=== PATIENT | female | born 1980 | race Caucasian/White ===

== ENCOUNTER 2020-06-26 16:14 | Emergency (ER) | payer MEDICAID, OTHER ==
[~2020-06-26] VITALS: Ht 157.5 cm; Wt 75.0 kg
[2020-06-26 20:13] VITALS: BP 127/71
== END 2020-06-26 20:36 | disposition home or self-care (01) ==
LOC: EMS 16:14
DX: S83.92XA Sprain of unspecified site of left knee, initial encounter (principal); F12.90 Cannabis use, unspecified, uncomplicated; X50.9XXA Other and unspecified overexertion or strenuous movements or postures, initial encounter; Y93.89 Activity, other specified; Y92.89 Other specified places as the place of occurrence of the external cause; Y99.8 Other external cause status
CPT/HCPCS: 29505